=== PATIENT | female | born 1955 | race Caucasian/White ===

== ENCOUNTER 2017-10-01 10:41 | Emergency (ER) | payer BC ==
[~2017-10-01] VITALS: Ht 154.9 cm; Wt 89.8 kg
[~2017-10-01 10:41] MED LIST: ACEBUTCAFT PO; AMLO5 PO; AMOX500 PO; ASCO500 PO; ASPI325 PO; ASPI325EC PO; ASPI81CH PO; ASPIRIN PO; ATOR20 PO; Amitriptyline H50 MG PO; BENZ100A PO; CIPR500 PO; CLOP75 PO; CODBUTACEC PO; CODGUAEL PO; CYCL10 PO; DIAZ5 PO; DOXY100 PO; ETOD400 PO; FERR325 PO; GABA300 PO; GLUC500 PO; HYDACE5 PO; HYDGUAL120 PO; ISODICACE PO; ISOMON20 PO; LEVFLO500 PO; MELO7.5; METO100ER PO; NITR.4SL SL; NITR.6SL SL; Norco 5-325 Ta1 EACH PO; ONDA4 PO; OXYACE5T PO; OXYB5 PO; OXYC10TA19 PO; OXYC5; OXYC5 PO; Omeprazole20 M1 PO; PARO20; PHENA200 PO; PRAV20 PO; PRED20 PO; PROP120ER PO; PYRI100 PO; RANI150 PO; RANO500T PO; SUMA25 PO; TOPI50; TOPI50 PO; TRAM50 PO; VENL75ER; VICODIN 5-3001 EACH PO
[2017-10-01] MEDS ORDERED: Ciloxan5 ML RIGHTEYE (12:03)
[2018-01-01] MEDS ORDERED: [UNRECOGNIZED DRUG - CODE] PO (18:16)
== END 2017-10-01 12:12 | disposition home or self-care (01) ==
LOC: ER 10:41
DX: S05.01XA Injury of conjunctiva and corneal abrasion without foreign body, right eye, initial encounter (principal); Z88.8 Allergy status to other drugs, medicaments and biological substances; Z88.5 Allergy status to narcotic agent; Z79.899 Other long term (current) drug therapy; Z79.82 Long term (current) use of aspirin; Z79.891 Long term (current) use of opiate analgesic; I10 Essential (primary) hypertension; X58.XXXA Exposure to other specified factors, initial encounter
CPT/HCPCS: 99282; 99283

== ENCOUNTER 2018-04-12 12:17 | Emergency (ER) | payer BC ==
[~2018-04-12 12:17] MED LIST changes: +Ciloxan5 ML RIGHTEYE; +[UNRECOGNIZED DRUG - CODE] PO
== END 2018-04-12 12:25 | disposition left against medical advice (07) ==
LOC: ER 12:17
DX: Z53.21 Procedure and treatment not carried out due to patient leaving prior to being seen by health care provider (principal)

== ENCOUNTER 2018-08-27 14:31 | Emergency (ER) | payer BC ==
[~2018-08-27] VITALS: Ht 154.9 cm; Wt 97.1 kg
[2018-08-27 15:07] LABS: BASOPHILS ABSOLUTE AUTO 0.04 K/mm3 (0.00-0.23); BASOPHILS PERCENT AUTO 1 % (0-2); EOSINOPHILS PERCENT AUTO 2 % (0-6); Hematocrit 41.8 % (33.0-51.0); Hemoglobin 14.2 g/dL (11.5-16.0); IMMATURE GRAN ABSOLUTE AUTO 0.02 K/mm3 (0.00-0.10); IMMATURE GRAN PERCENT AUTO 0 % (0-1); LYMPHOCYTES ABSOLUTE AUTO 2.17 K/mm3 (0.84-5.20); LYMPHOCYTES PERCENT AUTO 32 % (21-46); MONOCYTES ABSOLUTE AUTO 0.54 K/mm3 (0.16-1.47); MONOCYTES PERCENT AUTO 8 % (4-13); Mean Corpuscular HGB 30.2 pg (26.0-34.0); Mean Corpuscular Volume 89 fL (80-100); Mean Platelet Volume 8.6 fL (9.1-12.4); NEUTROPHILS ABSOLUTE AUTO 3.97 K/mm3 (1.96-9.15); NEUTROPHILS PERCENT AUTO 58 % (41-73); Platelet Count 275 K/mm3 (150-400); RDW Coefficient Variation 12.2 % (11.7-14.2); RDW Standard Deviation 39.4 fL (35.1-46.3); White Blood Cell Count 6.84 K/mm3 (4.00-11.30)
[2018-08-27 15:25] LABS: Troponin I <0.015 ng/mL (0.000-0.040)
[2018-08-27 15:41] LABS: Alanine Aminotransfer (ALT/SGP 29 U/L (12-78); Albumin, Blood 4.1 g/dL (3.4-5.0); Albumin/Globulin Ratio 1.1 (0.8-1.8); Alk Phos 85 U/L (50-136); Anion Gap 11 mmol/L (6-16); Aspartate Aminotrans (AST/SGOT 20 U/L (12-37); Bilirubin, Total 0.1 mg/dL (0.1-1.0); Blood Urea Nitrogen 12 mg/dL (8-24); Bun/Creatinine Ratio 11.8 (12.0-20.0); CO2, Blood 23 mmol/L (21-32); Calcium, Blood 8.7 mg/dL (8.5-10.1); Chloride, Blood 103 mmol/L (98-108); Creatinine, Blood 1.02 mg/dL (0.40-1.00); Globulin, Blood 3.9 g/dL (2.2-4.0); Glomerular Filtration Rate 58 (60-); Glucose, Blood 94 mg/dL (70-99); Potassium, Blood 3.5 mmol/L (3.5-5.5); Sodium, Blood 137 mmol/L (136-145)
[2018-08-27] MEDS ORDERED: HYDR1TAB94 PO (16:31)
== END 2018-08-27 16:45 | disposition home or self-care (01) ==
LOC: ER 14:31
PROVIDERS: Physician Assistant
DX: I25.10 Atherosclerotic heart disease of native coronary artery without angina pectoris (principal); E78.5 Hyperlipidemia, unspecified; I10 Essential (primary) hypertension; Z88.5 Allergy status to narcotic agent; Z79.899 Other long term (current) drug therapy
CPT/HCPCS: 36415; 71046; 80053; 84484; 85025; 93005; 93010; 99285-25

== ENCOUNTER 2018-12-04 10:44 | Day surgery (SDC) | payer BC ==
[~2018-12-04] VITALS: Ht 154.9 cm; Wt 93.9 kg
[~2018-12-04 10:44] MED LIST changes: +HYDR1TAB94 PO
--- NOTE | 2018-12-04 11:55 | NUR ---
12/04/18 1155 Stevie Olson 1ST IV ATTEMPT IN [facility] UNSUCCESSFUL, ADARSH 2ND IV ATTEMPT IN L[facility] SUCCESSFUL, BRANDONCCONNIE
== END 2018-12-04 14:21 | disposition home or self-care (01) ==
LOC: ORSCSDS 10:44
PROVIDERS: Podiatrist Foot & Ankle Surgery
PROC: 0QBP0ZZ Excision of Left Metatarsal, Open Approach (ICD-10-PCS; principal; 2018-12-04 12:15)
PROC: 0QBM0ZZ Excision of Left Tarsal, Open Approach (ICD-10-PCS; principal; 2018-12-04 12:15)
DX: M19.072 Primary osteoarthritis, left ankle and foot (principal); I25.10 Atherosclerotic heart disease of native coronary artery without angina pectoris; I10 Essential (primary) hypertension; Z79.899 Other long term (current) drug therapy; Z79.82 Long term (current) use of aspirin; E66.01 Morbid (severe) obesity due to excess calories; Z68.38 Body mass index [BMI] 38.0-38.9, adult
CPT/HCPCS: J0690; J1100; J2250; J2405; J2704; J3010; J7120

== ENCOUNTER → 2019-01-18 | Outpatient (CLI) | payer BC | END | disposition home or self-care (01) | LOC: LAB SHORT 13:49 → LAB 13:49 | DX: N39.0 Urinary tract infection, site not specified (principal) | CPT/HCPCS: 87077; 87086; 87186 ==

== ENCOUNTER 2019-07-19 07:40 | Day surgery (SDC) | payer BC ==
[~2019-07-19] VITALS: Ht 154.9 cm; Wt 92.1 kg
[~2019-07-19 07:40] MED LIST changes: +Inderal60 MG PO; +OMEPRAZOLE20 MG PO; -Omeprazole20 M1 PO; -PROP120ER PO
== END 2019-07-19 09:50 | disposition home or self-care (01) ==
LOC: ORSCSDS 07:40
PROVIDERS: Internal Medicine Gastroenterology
PROC: 0DBM8ZX Excision of Descending Colon, Via Natural or Artificial Opening Endoscopic, Diagnostic (ICD-10-PCS; principal; 2019-07-19 09:00)
PROC: 0DBL8ZX Excision of Transverse Colon, Via Natural or Artificial Opening Endoscopic, Diagnostic (ICD-10-PCS; principal; 2019-07-19 09:00)
DX: Z12.11 Encounter for screening for malignant neoplasm of colon (principal); D12.3 Benign neoplasm of transverse colon; D12.4 Benign neoplasm of descending colon; K57.30 Diverticulosis of large intestine without perforation or abscess without bleeding; I25.10 Atherosclerotic heart disease of native coronary artery without angina pectoris; I10 Essential (primary) hypertension; Z79.899 Other long term (current) drug therapy
CPT/HCPCS: 88305; J0330; J0461; J2405; J2704; J7120

== ENCOUNTER 2019-08-11 04:16 | Observation (INO) | payer BC ==
[~2019-08-11] VITALS: Ht 154.9 cm; Wt 92.3 kg
[2019-08-11 04:59] LABS: BASOPHILS ABSOLUTE AUTO 0.05 K/mm3 (0.00-0.23); BASOPHILS PERCENT AUTO 0 % (0-2); EOSINOPHILS ABSOLUTE AUTO 0.08 K/mm3 (0.00-0.68); EOSINOPHILS PERCENT AUTO 0 % (0-6); Hematocrit 43.8 % (33.0-51.0); Hemoglobin 15.3 g/dL (11.5-16.0); IMMATURE GRAN ABSOLUTE AUTO 0.35 K/mm3 (0.00-0.10); IMMATURE GRAN PERCENT AUTO 2 % (0-1); LYMPHOCYTES ABSOLUTE AUTO 2.24 K/mm3 (0.84-5.20); LYMPHOCYTES PERCENT AUTO 12 % (21-46); MONOCYTES ABSOLUTE AUTO 0.89 K/mm3 (0.16-1.47); MONOCYTES PERCENT AUTO 5 % (4-13); Mean Corpuscular HGB 29.9 pg (26.0-34.0); Mean Corpuscular HGB Conc 34.9 g/dL (31.5-36.5); Mean Corpuscular Volume 86 fL (80-100); Mean Platelet Volume 8.3 fL (9.1-12.4); NEUTROPHILS ABSOLUTE AUTO 15.03 K/mm3 (1.96-9.15); NEUTROPHILS PERCENT AUTO 81 % (41-73); Platelet Count 358 K/mm3 (150-400); RDW Coefficient Variation 11.5 % (11.7-14.2); RDW Standard Deviation 36.4 fL (35.1-46.3); Red Blood Cell Count 5.11 M/mm3 (3.80-5.20); White Blood Cell Count 18.64 K/mm3 (4.00-11.30)
[2019-08-11 05:17] LABS: Alanine Aminotransfer (ALT/SGP 45 U/L (12-78); Albumin/Globulin Ratio 1.2 (0.8-1.8); Alk Phos 70 U/L (50-136); Anion Gap 17 mmol/L (6-16); Aspartate Aminotrans (AST/SGOT 22 U/L (12-37); Bilirubin, Total 0.2 mg/dL (0.1-1.0); Blood Urea Nitrogen 23 mg/dL (8-24); Bun/Creatinine Ratio 23.1 (12.0-20.0); CO2, Blood 18 mmol/L (21-32); Calcium, Blood 8.9 mg/dL (8.5-10.1); Chloride, Blood 103 mmol/L (98-108); Globulin, Blood 3.4 g/dL (2.2-4.0); Glomerular Filtration Rate 60 (60-); Glucose, Blood 145 mg/dL (70-99); Potassium, Blood 3.3 mmol/L (3.5-5.5); Sodium, Blood 138 mmol/L (136-145); Total Protein, Blood 7.4 g/dL (6.4-8.2); Troponin I <0.015 ng/mL (0.000-0.040)
[2019-08-11] MEDS ORDERED: HYDR1TAB94 PO (05:56)
[2019-08-11] MEDS ORDERED: Dyazide 37.5-21 EACH PO (05:59)
[2019-08-11 06:23] LABS: Magnesium, Blood 2.4 mg/dL (1.6-2.4); Thyroid Stimulating Hormone 2.04 uIU/mL (0.360-4.800)
[2019-08-11] MEDS ORDERED: Isosorbide Mono30 MG PO (07:51)
--- NOTE | 2019-08-11 09:30 | NUR ---
0730-RECEIVED THIS PT FROM ER WITH A DIAGNOSIS OF AFIB WITH RVR. PT STATED SHE FELT MUCH BETTER AFTER BEING CARDIOVERTED IN THE ER. 08-PT SEEN BY DR. HERNÁNDEZ. UPDATED HIM OF PT'S STATUS. POSSIBLE DISCHARGE TODAY AFTER ECHO IS DONE. CURRENTLY PT IS ON SINUS RHYTHM WITH OCCASIONAL PACs.
[2019-08-11] MEDS ORDERED: XARELTO20 MG PO (15:26)
--- NOTE | 2019-08-11 16:46 | NUR ---
1610-DISCHARGE INSTRUCTIONS GIVEN TO PATIENT. 1630-PT WENT HOME AT THIS TIME.
== END 2019-08-11 16:15 | disposition home or self-care (01) ==
LOC: ER 04:16 → PCU 04:17 → ICUW 07:37
PROVIDERS: Emergency Medicine; ADMIT Family Medicine
DX: I48.0 Paroxysmal atrial fibrillation (principal); D72.829 Elevated white blood cell count, unspecified; I25.10 Atherosclerotic heart disease of native coronary artery without angina pectoris; I10 Essential (primary) hypertension; K21.9 Gastro-esophageal reflux disease without esophagitis; D69.6 Thrombocytopenia, unspecified; J01.90 Acute sinusitis, unspecified; E78.5 Hyperlipidemia, unspecified; E87.6 Hypokalemia; Z95.5 Presence of coronary angioplasty implant and graft; Z90.710 Acquired absence of both cervix and uterus; Z79.01 Long term (current) use of anticoagulants; Z79.02 Long term (current) use of antithrombotics/antiplatelets; Z79.899 Other long term (current) drug therapy; Z88.5 Allergy status to narcotic agent; Z88.6 Allergy status to analgesic agent; Z88.8 Allergy status to other drugs, medicaments and biological substances
CPT/HCPCS: 36415; 71045; 80053; 83735; 84443; 84484; 85025; 92960; 93005; 93010; 93306; 96361; 96374-59; 99285-25; G0378; G0480; J2704; J3480; J7030

== ENCOUNTER 2021-01-26 22:00 | Emergency (ER) | payer MEDICARE ==
[~2021-01-26] VITALS: Ht 154.9 cm; Wt 83.9 kg
[~2021-01-26 22:00] MED LIST changes: +Dyazide 37.5-21 EACH PO; +Isosorbide Mono30 MG PO; +XARELTO20 MG PO
[2021-01-26 22:37] LABS: Albumin/Globulin Ratio Unable to Calculate (0.8-1.8); Anion Gap Unable to Calculate mmol/L (6-16); Bun/Creatinine Ratio Unable to Calculate (12.0-20.0); Globulin, Blood Unable to Calculate g/dL (2.2-4.0); Glomerular Filtration Rate Unable to Calculate (60-)
[2021-01-26 22:45] LABS: BASOPHILS ABSOLUTE AUTO 0.03 K/mm3 (0.00-0.23); BASOPHILS PERCENT AUTO 1 % (0-2); EOSINOPHILS ABSOLUTE AUTO 0.09 K/mm3 (0.00-0.68); EOSINOPHILS PERCENT AUTO 1 % (0-6); Hematocrit 40.7 % (33.0-51.0); Hemoglobin 13.6 g/dL (11.5-16.0); IMMATURE GRAN ABSOLUTE AUTO 0.02 K/mm3 (0.00-0.10); IMMATURE GRAN PERCENT AUTO 0 % (0-1); LYMPHOCYTES PERCENT AUTO 36 % (21-46); MONOCYTES PERCENT AUTO 8 % (4-13); Mean Corpuscular HGB 30.5 pg (26.0-34.0); Mean Corpuscular HGB Conc 33.4 g/dL (31.5-36.5); Mean Corpuscular Volume 91 fL (80-100); Mean Platelet Volume 8.9 fL (9.1-12.4); NEUTROPHILS ABSOLUTE AUTO 3.38 K/mm3 (1.96-9.15); NEUTROPHILS PERCENT AUTO 54 % (41-73); Platelet Count 230 K/mm3 (150-400); RDW Coefficient Variation 12.2 % (11.7-14.2); RDW Standard Deviation 40.4 fL (35.1-46.3); Red Blood Cell Count 4.46 M/mm3 (3.80-5.20); White Blood Cell Count 6.32 K/mm3 (4.00-11.30)
[2021-01-26 22:58] LABS: Alanine Aminotransfer (ALT/SGP 32 U/L (12-78); Albumin, Blood 3.9 g/dL (3.4-5.0); Albumin/Globulin Ratio 1.1 (0.8-1.8); Alk Phos 81 U/L (50-136); Anion Gap 5 mmol/L (6-16); Aspartate Aminotrans (AST/SGOT 19 U/L (12-37); Bilirubin, Total 0.2 mg/dL (0.1-1.0); Blood Urea Nitrogen 14 mg/dL (8-24); Bun/Creatinine Ratio 13.1 (12.0-20.0); CO2, Blood 27 mmol/L (21-32); Calcium, Blood 8.9 mg/dL (8.5-10.1); Chloride, Blood 106 mmol/L (98-108); Creatinine, Blood 1.07 mg/dL (0.40-1.00); Globulin, Blood 3.5 g/dL (2.2-4.0); Glomerular Filtration Rate 55 (60-); Glucose, Blood 110 mg/dL (70-99); Potassium, Blood 3.4 mmol/L (3.5-5.5); Sodium, Blood 138 mmol/L (136-145); Total Protein, Blood 7.4 g/dL (6.4-8.2); Troponin I <0.015 ng/mL (0.000-0.040)
== END 2021-01-27 02:16 | disposition home or self-care (01) ==
LOC: ER 22:00
PROVIDERS: Emergency Medicine
DX: R07.9 Chest pain, unspecified (principal); Z79.01 Long term (current) use of anticoagulants; Z79.899 Other long term (current) drug therapy
CPT/HCPCS: 36415; 71046; 80053; 84484; 85025; 93005; 93010; 99285-25

== ENCOUNTER 2021-04-07 14:32 | Emergency (ER) | payer MEDICARE ==
[~2021-04-07] VITALS: Ht 154.9 cm; Wt 80.3 kg
[2021-04-07 15:24] LABS: BASOPHILS ABSOLUTE AUTO 0.03 K/mm3 (0.00-0.23); BASOPHILS PERCENT AUTO 0 % (0-2); EOSINOPHILS ABSOLUTE AUTO 0.01 K/mm3 (0.00-0.68); EOSINOPHILS PERCENT AUTO 0 % (0-6); Hematocrit 42.3 % (33.0-51.0); Hemoglobin 14.3 g/dL (11.5-16.0); IMMATURE GRAN ABSOLUTE AUTO 0.05 K/mm3 (0.00-0.10); IMMATURE GRAN PERCENT AUTO 0 % (0-1); LYMPHOCYTES ABSOLUTE AUTO 0.68 K/mm3 (0.84-5.20); LYMPHOCYTES PERCENT AUTO 6 % (21-46); MONOCYTES ABSOLUTE AUTO 0.47 K/mm3 (0.16-1.47); MONOCYTES PERCENT AUTO 4 % (4-13); Mean Corpuscular HGB 29.6 pg (26.0-34.0); Mean Corpuscular HGB Conc 33.8 g/dL (31.5-36.5); Mean Corpuscular Volume 88 fL (80-100); Mean Platelet Volume 8.6 fL (9.1-12.4); NEUTROPHILS ABSOLUTE AUTO 10.37 K/mm3 (1.96-9.15); NEUTROPHILS PERCENT AUTO 89 % (41-73); Platelet Count 172 K/mm3 (150-400); RDW Coefficient Variation 12.5 % (11.7-14.2); RDW Standard Deviation 39.8 fL (35.1-46.3); Red Blood Cell Count 4.83 M/mm3 (3.80-5.20); White Blood Cell Count 11.61 K/mm3 (4.00-11.30)
[2021-04-07 15:42] LABS: Albumin, Blood 3.6 g/dL (3.4-5.0); Bilirubin, Total 0.9 mg/dL (0.1-1.0); Bun/Creatinine Ratio 14.5 (12.0-20.0); Calcium, Blood 9.2 mg/dL (8.5-10.1); Creatinine, Blood 1.1 mg/dL (0.40-1.00); Globulin, Blood 3.7 g/dL (2.2-4.0); Total Protein, Blood 7.3 g/dL (6.4-8.2)
[2021-04-07 16:06] LABS: Source, Urine Catheter
[2021-04-07 16:11] LABS: Appearance, Urine Hazy (Clear); Bilirubin, Urine Neg (Neg); Blood, Urine 4+ (Neg); Color, Urine Yellow (P-Yellow); Glucose Qualitative, Urine Neg (Neg); Ketones, Urine Neg (Neg); Leukocyte Esterase, Urine 3+ (Neg); Nitrite, Urine Pos (Neg); Protein, Urine 3+ (Neg); Urobilinogen, Urine NORM (Normal); pH, Urine 6.5 (5.0-8.0)
[2021-04-07 16:22] LABS: Bacteria Many /hpf
[2021-04-07 16:23] LABS: Squamous Epithelial Cells Few /hpf (Few); White Blood Cells, Urine 50-100 /hpf (0-5)
[2021-04-07] MEDS ORDERED: Nitroglycerin0.4 MG SL (17:11)
[2021-04-07] MEDS ORDERED: XARELTO20 MG PO (17:11)
[2021-04-07] MEDS ORDERED: PROP10 PO (17:12)
[2021-04-07] MEDS ORDERED: HYDROCODONE-AC1 EA10 PO (17:12)
[2021-04-07] MEDS ORDERED: Metoprolol Tart25 MG PO (17:12)
[2021-04-07] MEDS ORDERED: TOPI25 PO (17:12)
[2021-04-07] MEDS ORDERED: ATOR20 PO (17:13)
[2021-04-07] MEDS ORDERED: LOSA50 PO (17:13)
[2021-04-07] MEDS ORDERED: SUMA25 PO (17:13)
[2021-04-07] MEDS ORDERED: CYCL10 PO (17:13)
[2021-04-07] MEDS ORDERED: FURO40 PO (17:13)
[2021-04-07] MEDS ORDERED: SPIR50 PO (17:13)
[2021-04-07] MEDS ORDERED: CEFP200 PO (18:33)
== END 2021-04-07 18:44 | disposition home or self-care (01) ==
LOC: ER 14:32
PROVIDERS: Physician Assistant
DX: N12 Tubulo-interstitial nephritis, not specified as acute or chronic (principal); N20.0 Calculus of kidney; I95.9 Hypotension, unspecified; I10 Essential (primary) hypertension; Z79.899 Other long term (current) drug therapy; Z88.8 Allergy status to other drugs, medicaments and biological substances; Z88.6 Allergy status to analgesic agent; Z88.5 Allergy status to narcotic agent; Z79.01 Long term (current) use of anticoagulants
CPT/HCPCS: 36415; 74176; 80053; 81001; 83605; 85025; 87040; 87077; 87086; 87186; 93005; 93010; 96365; 96375; 99284-25; J0696; J1885; J7030

== ENCOUNTER → 2021-07-13 | Outpatient (CLI) | payer MEDICARE ==
[~2021-07-13] MED LIST changes: +CEFP200 PO; +FURO40 PO; +HYDROCODONE-AC1 EA10 PO; +LOSA50 PO; +Metoprolol Tart25 MG PO; +Nitroglycerin0.4 MG SL; +PROP10 PO; +SPIR50 PO; +TOPI25 PO
== END | disposition home or self-care (01) ==
LOC: LAB SHORT 16:33 → LAB 16:33
DX: M81.0 Age-related osteoporosis without current pathological fracture (principal)
CPT/HCPCS: 82306

== ENCOUNTER → 2021-12-20 | Outpatient (CLI) | payer MEDICARE | END | disposition home or self-care (01) | LOC: LAB 13:16 → LAB SHORT 13:16 | DX: N39.0 Urinary tract infection, site not specified (principal) | CPT/HCPCS: 87077; 87086; 87186 ==

== ENCOUNTER → 2022-07-30 | Outpatient (CLI) | payer MEDICARE ==
[~2022-07-30] MED LIST changes: +TOPI100
[2022-07-30 15:32] LABS: Albumin, Blood 3.8 g/dL (3.4-5.0); Anion Gap 10 mmol/L (6-16); Blood Urea Nitrogen 17 mg/dL (8-24); Bun/Creatinine Ratio 18.9 (12.0-20.0); CO2, Blood 23 mmol/L (21-32); Calcium, Blood 8.6 mg/dL (8.5-10.1); Chloride, Blood 105 mmol/L (98-108); Glomerular Filtration Rate 70 (60-); Glucose, Blood 94 mg/dL (70-99); Phosphorus, Blood 3.3 mg/dL (2.5-4.9); Potassium, Blood 3.2 mmol/L (3.5-5.5); Sodium, Blood 138 mmol/L (136-145)
== END ==
LOC: LAB 15:20 → LAB SHORT 15:20
PROVIDERS: Family Medicine
DX: E86.0 Dehydration (principal)
CPT/HCPCS: 80069

== ENCOUNTER 2022-08-23 11:50 | Inpatient (IN) | payer MEDICARE ==
[~2022-08-23] VITALS: Ht 154.9 cm; Wt 80.1 kg
[~2022-08-23 11:50] MED LIST changes: -TOPI100; +TOPI100 PO
[2022-08-23 12:52] LABS: BASOPHILS ABSOLUTE AUTO 0.02 K/mm3 (0.00-0.23); BASOPHILS PERCENT AUTO 0 % (0-2); EOSINOPHILS PERCENT AUTO 2 % (0-6); Hematocrit 40.1 % (33.0-51.0); Hemoglobin 13.8 g/dL (11.5-16.0); IMMATURE GRAN ABSOLUTE AUTO 0.01 K/mm3 (0.00-0.10); IMMATURE GRAN PERCENT AUTO 0 % (0-1); LYMPHOCYTES ABSOLUTE AUTO 1.62 K/mm3 (0.84-5.20); LYMPHOCYTES PERCENT AUTO 26 % (21-46); MONOCYTES ABSOLUTE AUTO 0.47 K/mm3 (0.16-1.47); MONOCYTES PERCENT AUTO 8 % (4-13); Mean Corpuscular HGB 31.3 pg (26.0-34.0); Mean Corpuscular HGB Conc 34.4 g/dL (31.5-36.5); Mean Corpuscular Volume 91 fL (80-100); Mean Platelet Volume 8.3 fL (9.1-12.4); NEUTROPHILS ABSOLUTE AUTO 4.03 K/mm3 (1.96-9.15); NEUTROPHILS PERCENT AUTO 65 % (41-73); Platelet Count 215 K/mm3 (150-400); RDW Coefficient Variation 13.4 % (11.7-14.2); RDW Standard Deviation 44.7 fL (35.1-46.3); Red Blood Cell Count 4.41 M/mm3 (3.80-5.20); White Blood Cell Count 6.25 K/mm3 (4.00-11.30)
[2022-08-23 13:12] LABS: Albumin, Blood 3.9 g/dL (3.4-5.0); Albumin/Globulin Ratio 1.1 (0.8-1.8); Bilirubin, Total 0.2 mg/dL (0.1-1.0); Bun/Creatinine Ratio 25.6 (12.0-20.0); Calcium, Blood 9.9 mg/dL (8.5-10.1); Creatinine, Blood 0.78 mg/dL (0.40-1.00); Globulin, Blood 3.6 g/dL (2.2-4.0); Total Protein, Blood 7.5 g/dL (6.4-8.2)
[2022-08-23] MEDS ORDERED: XARELTO20 MG PO (18:45)
[2022-08-23 19:24] LABS: International Normalized Ratio 1.04; Prothrombin Time Results 10.9 Sec (9.7-11.5)
[2022-08-23 19:58] LABS: Anti-Xa UFH, PHA Monitoring 1.18 IU/mL
[2022-08-23] MEDS ORDERED: PROP10 PO (20:46)
[2022-08-24 03:27] LABS: BASOPHILS ABSOLUTE AUTO 0.02 K/mm3 (0.00-0.23); BASOPHILS PERCENT AUTO 0 % (0-2); EOSINOPHILS ABSOLUTE AUTO 0.12 K/mm3 (0.00-0.68); EOSINOPHILS PERCENT AUTO 2 % (0-6); Hematocrit 38.3 % (33.0-51.0); Hemoglobin 12.8 g/dL (11.5-16.0); IMMATURE GRAN ABSOLUTE AUTO 0.01 K/mm3 (0.00-0.10); IMMATURE GRAN PERCENT AUTO 0 % (0-1); LYMPHOCYTES ABSOLUTE AUTO 2.22 K/mm3 (0.84-5.20); LYMPHOCYTES PERCENT AUTO 38 % (21-46); MONOCYTES ABSOLUTE AUTO 0.37 K/mm3 (0.16-1.47); MONOCYTES PERCENT AUTO 6 % (4-13); Mean Corpuscular HGB Conc 33.4 g/dL (31.5-36.5); Mean Corpuscular Volume 93 fL (80-100); Mean Platelet Volume 8.2 fL (9.1-12.4); NEUTROPHILS ABSOLUTE AUTO 3.14 K/mm3 (1.96-9.15); NEUTROPHILS PERCENT AUTO 53 % (41-73); Platelet Count 198 K/mm3 (150-400); RDW Coefficient Variation 13.7 % (11.7-14.2); RDW Standard Deviation 45.4 fL (35.1-46.3); Red Blood Cell Count 4.13 M/mm3 (3.80-5.20); White Blood Cell Count 5.88 K/mm3 (4.00-11.30)
[2022-08-24 04:18] LABS: Alanine Aminotransfer (ALT/SGP 35 U/L (12-78); Albumin, Blood 3.6 g/dL (3.4-5.0); Albumin/Globulin Ratio 1.1 (0.8-1.8); Alk Phos 64 U/L (50-136); Anion Gap 7 mmol/L (6-16); Aspartate Aminotrans (AST/SGOT 18 U/L (12-37); Bilirubin, Total 0.3 mg/dL (0.1-1.0); Blood Urea Nitrogen 16 mg/dL (8-24); Bun/Creatinine Ratio 22.4 (12.0-20.0); CHOL/HDL RATIO 3.1; CO2, Blood 22 mmol/L (21-32); Calcium, Blood 8.7 mg/dL (8.5-10.1); Chloride, Blood 109 mmol/L (98-108); Cholesterol 187 mg/dL (50-200); Creatinine, Blood 0.72 mg/dL (0.40-1.00); Globulin, Blood 3.4 g/dL (2.2-4.0); Glomerular Filtration Rate 92 (60-); Glucose, Blood 98 mg/dL (70-99); HDL Cholesterol 61 mg/dL (>39); LDL/HDL RATIO 0.9; Low Density Lipoprotein Chol 56 mg/dL (0-110); Magnesium, Blood 2.4 mg/dL (1.6-2.4); Potassium, Blood 3.5 mmol/L (3.5-5.5); Sodium, Blood 138 mmol/L (136-145); Triglycerides 348 mg/dL (30-160); Very Low Density Lipoprot Chol 69 mg/dL (6-32)
--- NOTE | 2022-08-24 07:15 | NUR ---
BUNCHER OPERATOR SUMMARY PT WAS ADMITTED FROM ER FOR UNSTABLE ANGINA. SHE IS ALERT AND ORIENTED X4, INDEPENDENT. PT FOLLOWS DIRECTIONS. SHE REPORTS INTERMITTENT 4/10 SQUEEZING CHEST PAIN THAT WAS RESOLVED SLIGHTLY WITH NITRO AT HOME BUT KEEPS RETURNING. SHE WAS GIVEN TYLENOL X1 FOR THE HEADACHE FROM HER NITRO. PT HAS SOME SCATTERED BRUISING FROM HX OF XARELTO. SHE HAS BEEN SINUS IN THE 70S ON TELE AND SATTING HIGH 90S ON RA. SHE HAS HAD ONLY CLEAR LIQUIDS SINCE MIDNIGHT AND WILL BE NPO AT 0800 FOR ANGIO AT [address]ING SEEN BY DR[address] FISCHER.
--- NOTE | 2022-08-24 08:53 | NUR ---
AM NOTE: PATIENT ALERT AND ORIENTED X4. PERRLA. BILATERAL EMT BASIC STRENGTH AND EXTREMITY MOVEMENTS. STATES SHE FEELS SOME TINGLES IN HER RIGHT HAND THAT IS NOT NORMALLY THERE. STRONG PULSES. UP SBA DUE TO HEPARIN GTT. ON ROOM AIR, LUNGS SOUNDING CLEAR AND DIM IN BASES. DENIES SOB/COUGH. TELE SHOWING NORMAL SINUS RHYTHM WITH HR 70-80'S. BP STABLE. HEPARIN GTT INFUSING PER EMAR. NO SIGNS OF EDEMA. STATES SHE HAS HAD 4-6/10 CHEST PRESSURE ON AND OFF THE LAST DAY. DESCRIBES PRESSURE A SQUEEZING FEELING. AT TIMES IT CAN RADIATE TO NECK. NO RADIATING PAIN AT THIS TIME. DENIES NEED FOR NITRO, DUE TO IT CAUSING PATIENT HEADACHE. CURRENT HEADACHE 4/10 PAIN, TYLENOL GIVEN. PLAN FOR ECHO THIS AM AND ANGIO. STRESS TEST CANCELLED PER MUSICAL INSTRUMENT MECHANIC REPORT. NPO AT THIS TIME. MORN MEDS GIVEN WITH LASIX BEING HELD PER ORDERS. SCATTERED BRUISING THROUGHOUT, SEE DOCUMENTED PICTURES IN CHART. DR. GIRON BY THIS AM, NEW ORDERS FOR KCL PO SOLUTION 40 MEQ X1 NOW, WELL ORDERS FOR 08/25 AM; MAG, RENAL PANEL AND CBC LABS WELL CT OF HEAD WITH CONTRAST DUE TO CHRONIC MIGRAINES. ORDERS IN PLACE. HEPARIN AND NS INFUSING PER EMAR. PATIENT SPOUSE AT BEDSIDE AND UPDATED ON PLAN OF CARE. WILL CONTINUE TO MONITOR.
--- NOTE | 2022-08-24 14:22 | NUR ---
PATIENT TAKEN TO EMERGENCY VETERINARY TECHNICIAN AT THIS TIME
--- NOTE | 2022-08-24 16:10 | NUR ---
PATIENT RETURNS TO PCU AT 1600. POST VITALS IN PROGRESS. RIGHT TR BAND SOFT/NONTENDER. INITIAL POKE DISTAL TO TR BAND WNL. NO SIGNS OF BLEEDING. ARM BOARD IN PLACE. RADIAL PRECAUTIONS REVIEWED. PATIENT DENIES CHEST PAIN/PRESSURE WELL HEADACHE. NS INFUSING AT 125 ML/HR TO STOP AT 10PM TONIGHT. DIET ORDERS IN PLACE. FAMILY AT BEDSIDE. DR. FISCHER IN TO UPDATE PATIENT AND FAMILY. WILL CONTINUE TO MONITOR.
--- NOTE | 2022-08-24 18:26 | NUR ---
SHIFT SUMMARY: NO ACUTE CHANGES POST ANGIOGRAM. NS INFUSING AT 125ML/HR TO STOP AT 2200. REMAINS ALERT AND ORIENTED X4. TELE CONTINUES TO SHOW SR WITH HR 60'S. RIGHT RADIAL SITE WNL. TR BAND DEFLATION STARTED AT 1745. ARM BOARD IN PLACE. DENIES CHEST PAIN/PRESSURE. DENIES HEADACHE. POST OP VITALS IN PROGRESS. AT BEDSIDE. EATING WNL. SPOKE WITH DR. FISCHER REGARDING XERALTO ORDER AND XERALTO TO START 1/15 AM, SEE EMAR. PATIENT EDUCATED ON POST RADIAL AND ANGIO PRECAUTIONS. PATIENT AND FAMILY ABLE TO REPEAT EDUCATION BACK TO THIS RN. WILL CONTINUE TO MONITOR AND REPORT OFF TO ONCOMING RN.
--- NOTE | 2022-08-24 19:22 | NUR ---
MODERATE SIZE OOZE AT RIGHT RADIAL SITE UNDER TR BAND. 2ML REINFLATED IN BAND AT 1913. NOC NURSE IN TO ASSESS WITH THIS RN. NO HEMATOMA FORMING. SKIN AROUND REMAINS SOFT/NONTENDER.
--- NOTE | 2022-08-25 01:00 | NUR ---
PT'S TR BAND REINFLATED TO 6 ML AT SHIFT CHANGE DUE TO NEW OOZING. CONSULTED WITH DR FISCHER REGARDING SITE BLEEDING. HE STATES IS OKAY TO EXTEND TR BAND RECOVERY TIME DUE TO PT RECENTLY TAKING XARELTO. 2044 - TR BAND DEFLATED TO 4 ML SITE NOTED NO BLEEDING. 2218 - TR BAND DEFLATED TO 2 ML - NO BLEEDING OR HEMATOMA NOTED. SMALL DEVELOPING BRUISE NEAR MISSED INITIAL ACCESS SITE. 2229 - TR BAND FULLY DEFLATED - NO BLEEDING, PAIN OR HEMATOMA. SMALL DEVELOPING BRUISE WITHOUT PAIN. 0100 - TR BAND REMOVED AND SITE CLEANED WITH TEGADERM PLACED - NO NOTED OOZING OR HEMATOMA BUT SOME SLIGHT BRUISING WITHOUT PAIN.
[2022-08-25 04:36] LABS: BASOPHILS ABSOLUTE AUTO 0.02 K/mm3 (0.00-0.23); BASOPHILS PERCENT AUTO 0 % (0-2); EOSINOPHILS ABSOLUTE AUTO 0.12 K/mm3 (0.00-0.68); EOSINOPHILS PERCENT AUTO 2 % (0-6); Hematocrit 37.3 % (33.0-51.0); Hemoglobin 12.3 g/dL (11.5-16.0); IMMATURE GRAN ABSOLUTE AUTO 0.01 K/mm3 (0.00-0.10); IMMATURE GRAN PERCENT AUTO 0 % (0-1); LYMPHOCYTES PERCENT AUTO 31 % (21-46); MONOCYTES ABSOLUTE AUTO 0.49 K/mm3 (0.16-1.47); MONOCYTES PERCENT AUTO 9 % (4-13); Mean Corpuscular HGB 30.8 pg (26.0-34.0); Mean Corpuscular Volume 93 fL (80-100); Mean Platelet Volume 8.3 fL (9.1-12.4); NEUTROPHILS PERCENT AUTO 58 % (41-73); Platelet Count 187 K/mm3 (150-400); RDW Coefficient Variation 13.5 % (11.7-14.2); RDW Standard Deviation 46.2 fL (35.1-46.3); White Blood Cell Count 5.74 K/mm3 (4.00-11.30)
[2022-08-25 05:03] LABS: Albumin, Blood 3.3 g/dL (3.4-5.0); Anion Gap 4 mmol/L (6-16); Blood Urea Nitrogen 15 mg/dL (8-24); Bun/Creatinine Ratio 19.9 (12.0-20.0); CO2, Blood 23 mmol/L (21-32); Calcium, Blood 8.2 mg/dL (8.5-10.1); Chloride, Blood 113 mmol/L (98-108); Creatinine, Blood 0.75 mg/dL (0.40-1.00); Glomerular Filtration Rate 87 (60-); Glucose, Blood 94 mg/dL (70-99); Magnesium, Blood 2.3 mg/dL (1.6-2.4); Phosphorus, Blood 2.6 mg/dL (2.5-4.9); Sodium, Blood 140 mmol/L (136-145)
--- NOTE | 2022-08-25 06:11 | NUR ---
LOBBY PORTER SUMMARY ASSUMED CARE OF THE PATIENT AT 1900. SHE IS ALERT AND ORIENTED X4, SBA DUE TO LINES AND TUBING. PT WITH RIGHT RADIAL ACCESS SITE, RECOVERED. TR BAND REMOVED AT 0100 AND SITE CHECKED THROUGHOUT THE SHIFT. SMALL AREA OF BRUISING NOTED TO PREVIOUS FAILED ACCESS SITE BUT NO HEMATOMA, OOZING, OR PAIN TO THE ACCESS SITE. NS INFUSION STOPPED. PT REQUESTED TYLENOL ONCE FOR A HEADACHE WITH IMPROVEMENT. PT REPORTS NO CHEST PAIN SINCE HAVING THE ANGIO.
[2022-08-25] MEDS ORDERED: RANO500T PO (13:45)
[2022-08-25] MEDS ORDERED: METO50ER PO (13:45)
[2022-08-25] MEDS ORDERED: ATOR40TA PO (13:45)
== END 2022-08-25 14:05 | disposition home or self-care (01) | DRG 287 ==
LOC: ER 11:50 → MEDS 17:37 → PCU 20:29
PROVIDERS: Physician Assistant; ADMIT Family Medicine
PROC: 4A023N7 Measurement of Cardiac Sampling and Pressure, Left Heart, Percutaneous Approach (ICD-10-PCS; principal; 2022-08-24)
PROC: B211YZZ Fluoroscopy of Multiple Coronary Arteries using Other Contrast (ICD-10-PCS; 2022-08-24)
PROC: 4A033BC Measurement of Arterial Pressure, Coronary, Percutaneous Approach (ICD-10-PCS; 2022-08-24)
PROC: B240ZZ3 Ultrasonography of Single Coronary Artery, Intravascular (ICD-10-PCS; 2022-08-24)
DX: I25.110 Atherosclerotic heart disease of native coronary artery with unstable angina pectoris (principal); T82.855A Stenosis of coronary artery stent, initial encounter; I10 Essential (primary) hypertension; E78.5 Hyperlipidemia, unspecified; I48.0 Paroxysmal atrial fibrillation; Z88.8 Allergy status to other drugs, medicaments and biological substances; Z88.5 Allergy status to narcotic agent; Z79.899 Other long term (current) drug therapy; Z79.01 Long term (current) use of anticoagulants; I25.2 Old myocardial infarction; Z98.890 Other specified postprocedural states; Z95.5 Presence of coronary angioplasty implant and graft; Z90.710 Acquired absence of both cervix and uterus; Z98.1 Arthrodesis status; Z87.442 Personal history of urinary calculi; Z79.02 Long term (current) use of antithrombotics/antiplatelets; Z79.891 Long term (current) use of opiate analgesic
CPT/HCPCS: 36415; 70496; 70498; 71045; 76937; 80053; 80061; 80069; 82947; 83735; 83880; 84484; 85025; 85347; 85520; 85610; 85730; 93005; 93010; 93306; 93458; 93571; 99152; 99153; 99285-25; A9270; C1769; C1887; C1894; J0153; J1644; J2250; J3010; J7030; J7050; Q9967

== ENCOUNTER 2023-06-17 08:59 | Day surgery (SDC) | payer MEDICARE ==
[~2023-06-17] VITALS: Ht 154.9 cm; Wt 79.4 kg
[~2023-06-17 08:59] MED LIST changes: +ATOR40TA PO; +METO50ER PO
[2023-06-17] MEDS ORDERED: BUTALB-ACETAMI1 EAC7 PO (09:43)
[2023-06-17] MEDS ORDERED: NITRO-DUR1 EAC1 TOP (09:45)
[2023-06-17] MEDS ORDERED: NITR.4SL (09:45)
[2023-06-17] MEDS ORDERED: AJOVY SYRI225 MG/1.5 SQ (09:46)
[2023-06-17] MEDS ORDERED: PROP10 PO (09:47)
[2023-06-17] MEDS ORDERED: OMEP20ER PO (09:51)
[2023-06-17] MEDS ORDERED: K-Dur20 MEQ PO (09:51)
--- NOTE | 2023-06-17 09:53 | NUR ---
06/17/23 0953 Tricia Morrow AT 0944 P[place]ARMANDOET AT [phone]
[2023-06-17 10:44] VITALS: BP 105/65
--- NOTE | 2023-06-17 11:02 | NUR ---
06/17/23 1102 Randall Cabello IV REMOVED INTACT. SITE WNL.
== END 2023-06-17 10:57 | disposition home or self-care (01) ==
LOC: ORSCSDS 08:59
PROVIDERS: Student in an Organized Health Care Education/Training Program
PROC: 08RJ3JZ Replacement of Right Lens with Synthetic Substitute, Percutaneous Approach (ICD-10-PCS; principal; 2023-06-17 10:30)
DX: H25.11 Age-related nuclear cataract, right eye (principal); I48.91 Unspecified atrial fibrillation; I25.10 Atherosclerotic heart disease of native coronary artery without angina pectoris; I10 Essential (primary) hypertension; D64.9 Anemia, unspecified; K21.9 Gastro-esophageal reflux disease without esophagitis; I25.2 Old myocardial infarction; E66.9 Obesity, unspecified; Z68.33 Body mass index [BMI] 33.0-33.9, adult; Z79.01 Long term (current) use of anticoagulants; Z79.899 Other long term (current) drug therapy
CPT/HCPCS: J2250; J3010; J7040; V2632

== ENCOUNTER 2023-07-01 08:59 | Day surgery (SDC) | payer MEDICARE ==
[~2023-07-01] VITALS: Ht 154.9 cm; Wt 78.5 kg
[~2023-07-01 08:59] MED LIST changes: +AJOVY SYRI225 MG/1.5 SQ; +BUTALB-ACETAMI1 EAC7 PO; +K-Dur20 MEQ PO; +NITR.4SL; +NITRO-DUR1 EAC1 TOP; +OMEP20ER PO
--- NOTE | 2023-07-01 09:39 | NUR ---
07/01/23 0939 Tricia Morrow AT 0935 PLEARMANDO[place] AT [phone]
[2023-07-01 10:33] VITALS: BP 119/80
== END 2023-07-01 10:50 | disposition home or self-care (01) ==
LOC: ORSCSDS 08:59
PROVIDERS: Student in an Organized Health Care Education/Training Program
PROC: 08RK3JZ Replacement of Left Lens with Synthetic Substitute, Percutaneous Approach (ICD-10-PCS; principal; 2023-07-01 10:30)
DX: H25.12 Age-related nuclear cataract, left eye (principal); Z96.1 Presence of intraocular lens; I10 Essential (primary) hypertension; I48.91 Unspecified atrial fibrillation; I25.10 Atherosclerotic heart disease of native coronary artery without angina pectoris; K21.9 Gastro-esophageal reflux disease without esophagitis; I25.2 Old myocardial infarction; Z79.01 Long term (current) use of anticoagulants; Z79.899 Other long term (current) drug therapy
CPT/HCPCS: J2250; J3010; J7040; V2632

== ENCOUNTER → 2024-03-01 | Outpatient (CLI) | payer MEDICARE ==
[2024-03-01 13:08] LABS: Source, Urine Clean Catch; Squamous Epithelial Cells Many /hpf (Few)
[2024-03-01 13:09] LABS: Bacteria Many /hpf
== END | disposition home or self-care (01) ==
LOC: LAB SHORT 12:55 → LAB 12:55
PROVIDERS: Internal Medicine
DX: N39.0 Urinary tract infection, site not specified (principal)
CPT/HCPCS: 81015; 87077; 87086; 87186

== ENCOUNTER 2024-07-19 12:04 | Emergency (ER) | payer MEDICARE ==
[~2024-07-19] VITALS: Ht 154.9 cm; Wt 75.8 kg
[2024-07-19 12:13] VITALS: BP 106/70
[2024-07-19 12:40] LABS: BASOPHILS ABSOLUTE AUTO 0.02 K/mm3 (0.00-0.23); BASOPHILS PERCENT AUTO 0 % (0-2); EOSINOPHILS ABSOLUTE AUTO 0.08 K/mm3 (0.00-0.68); EOSINOPHILS PERCENT AUTO 1 % (0-6); Hematocrit 26.1 % (33.0-51.0); Hemoglobin 8.1 g/dL (11.5-16.0); IMMATURE GRAN ABSOLUTE AUTO 0.09 K/mm3 (0.00-0.10); IMMATURE GRAN PERCENT AUTO 1 % (0-1); LYMPHOCYTES ABSOLUTE AUTO 0.68 K/mm3 (0.84-5.20); LYMPHOCYTES PERCENT AUTO 5 % (21-46); MONOCYTES ABSOLUTE AUTO 0.77 K/mm3 (0.16-1.47); MONOCYTES PERCENT AUTO 6 % (4-13); Mean Corpuscular HGB 26.2 pg (26.0-34.0); Mean Corpuscular Volume 85 fL (80-100); Mean Platelet Volume 8.2 fL (9.1-12.4); NEUTROPHILS ABSOLUTE AUTO 11.64 K/mm3 (1.96-9.15); NEUTROPHILS PERCENT AUTO 88 % (41-73); Platelet Count 245 K/mm3 (150-400); RDW Coefficient Variation 13.1 % (11.7-14.2); RDW Standard Deviation 39.9 fL (35.1-46.3); Red Blood Cell Count 3.09 M/mm3 (3.80-5.20); White Blood Cell Count 13.28 K/mm3 (4.00-11.30)
[2024-07-19 13:48] LABS: Albumin, Blood 3.2 g/dL (3.4-5.0); Albumin/Globulin Ratio 0.9 (0.8-1.8); Bilirubin, Total 0.3 mg/dL (0.1-1.0); Bun/Creatinine Ratio 19.5 (12.0-20.0); Calcium, Blood 8.9 mg/dL (8.5-10.1); Creatinine, Blood 1.18 mg/dL (0.40-1.00); Globulin, Blood 3.7 g/dL (2.2-4.0); Potassium, Blood 4.1 mmol/L (3.5-5.5); Total Protein, Blood 6.9 g/dL (6.4-8.2)
[2024-07-19 15:25] LABS: Source, Urine Clean Catch
[2024-07-19 15:48] LABS: Appearance, Urine Hazy (Clear); Bilirubin, Urine Neg (Neg); Blood, Urine 5+ (Neg); Color, Urine Yellow (P-Yellow); Glucose Qualitative, Urine Neg (Neg); Ketones, Urine Neg (Neg); Leukocyte Esterase, Urine 1+ (Neg); Nitrite, Urine Neg (Neg); Protein, Urine 1+ (Neg); Urobilinogen, Urine NORM (Normal)
[2024-07-19 16:08] LABS: Bacteria Rare /hpf; Red Blood Cells, Urine 25-50 /hpf (0-2); Squamous Epithelial Cells Rare /hpf (Few)
[2024-07-19] MEDS ORDERED: AMOCLA875 PO (16:10)
[2024-07-19] MEDS ORDERED: PROM25 PO (16:10)
[2024-07-19] MEDS ORDERED: OxyCODONE HCL 5 MG TAB PO ONE (16:10)
[2024-07-19] MEDS ORDERED: Amoxicillin/Clavulanate K 875 MG Tab PO ONE (16:10)
[2024-07-19] MEDS ORDERED: PERCOCET 10-321 EA10 PO (16:13)
== END 2024-07-19 16:41 | disposition home or self-care (01) ==
LOC: ER 12:04
PROVIDERS: Physician Assistant
DX: K52.9 Noninfective gastroenteritis and colitis, unspecified (principal); D64.9 Anemia, unspecified; I10 Essential (primary) hypertension; I48.91 Unspecified atrial fibrillation; I25.2 Old myocardial infarction; Z88.8 Allergy status to other drugs, medicaments and biological substances; Z88.5 Allergy status to narcotic agent; Z79.01 Long term (current) use of anticoagulants; Z79.899 Other long term (current) drug therapy
CPT/HCPCS: 74177; 80053; 81001; 82272; 83690; 85025; 87077; 87086; 87186; 99284-25; A9270; Q9967

== ENCOUNTER 2024-08-12 13:14 | Inpatient (IN) | payer MEDICARE ==
[~2024-08-12] VITALS: Ht 162.6 cm; Wt 77.2 kg
[~2024-08-12 13:14] MED LIST changes: -BUTONI; -DICL75ER PO
[2024-08-12] MEDS ORDERED: Pantoprazole Sodium 40 MG Injection IV ONE (19:25)
[2024-08-12 20:09] LABS: BASOPHILS ABSOLUTE AUTO 0.01 K/mm3 (0.00-0.23); BASOPHILS PERCENT AUTO 0 % (0-2); EOSINOPHILS ABSOLUTE AUTO 0.07 K/mm3 (0.00-0.68); EOSINOPHILS PERCENT AUTO 3 % (0-6); Hematocrit 21.4 % (33.0-51.0); Hemoglobin 6.4 g/dL (11.5-16.0); IMMATURE GRAN ABSOLUTE AUTO 0.01 K/mm3 (0.00-0.10); IMMATURE GRAN PERCENT AUTO 0 % (0-1); LYMPHOCYTES ABSOLUTE AUTO 0.87 K/mm3 (0.84-5.20); LYMPHOCYTES PERCENT AUTO 34 % (21-46); MONOCYTES PERCENT AUTO 16 % (4-13); Mean Corpuscular HGB 24.1 pg (26.0-34.0); Mean Corpuscular HGB Conc 29.9 g/dL (31.5-36.5); Mean Corpuscular Volume 81 fL (80-100); Mean Platelet Volume 9.1 fL (9.1-12.4); NEUTROPHILS ABSOLUTE AUTO 1.21 K/mm3 (1.96-9.15); NEUTROPHILS PERCENT AUTO 47 % (41-73); Platelet Count 232 K/mm3 (150-400); RDW Coefficient Variation 14.5 % (11.7-14.2); RDW Standard Deviation 42.8 fL (35.1-46.3); Red Blood Cell Count 2.66 M/mm3 (3.80-5.20); White Blood Cell Count 2.57 K/mm3 (4.00-11.30)
[2024-08-12] MEDS ORDERED: Acetamin/Butalbital/Caffeine Tab PO ONE (23:35)
[2024-08-13] VITALS (7 sets, daily range): BP systolic 105–154; BP diastolic 58–89
[2024-08-13] MEDS ORDERED: Misc. Nasal Solution PRN (01:50)
--- NOTE | 2024-08-13 03:27 | NUR ---
MEDICATION IN PHARMACY ON ADMISSION, PATIENT REQUESTING TO TAKE HOME MEDICATION BUTORPHANOL - NASAL SPRAY FOR A MIGRAINE. PATIENT STATES SHE TAKES THIS MEDICATION AT HOME AFTER HER OTHER MEDICATIONS FOR MIGRAINES DO NOT WORK. PATIENT ALSO STATES SHE TOOK MEDICATION IN THE ER FOR A MIGRAINE BUT GOT NO RELIEF. CALL PLACED TO CIPRIANO PINA TO ORDER MEDICATION AND SEND TO PHARMACY FOR VERIFICATION. D/T MEDICATION BEING A NARCOTIC, MEDICATION TO BE SIGNED IN/OUT OF PHARMACY WHEN NEEDED AND TO BE STORED IN PHARMACY. PHARMACIST DENNYS KUMAR RN AND THIS RN IN AGREEANCE TO KEEP MEDICATION IN PHARMACY UNTIL NEEDED.
[2024-08-13 03:36] LABS: Hematocrit 27.9 % (33.0-51.0); Hemoglobin 8.6 g/dL (11.5-16.0)
[2024-08-13] MEDS ORDERED: Pantoprazole Sodium 40 MG Injection IV SCH ×2 (06:00)
[2024-08-13] MEDS ORDERED: DICL75ER PO (06:05)
[2024-08-13] MEDS ORDERED: BUTONI (06:07)
[2024-08-13] MEDS ORDERED: ONDA4 PO (06:08)
--- NOTE | 2024-08-13 06:42 | NUR ---
ADMIT/SHIFT SUMMARY PT ARRIVED TO ROOM PCU 12 FROM THE ER AROUND 0100 VIA GURNEY. PT WAS A SBA TO HOSPITAL BED. PT HAD SECOND UNIT OF PRBC INFUSING. ORIENTED PT TO ROOM/CALL LIGHT. PT IS A&OX4, PLEASANT AND COOPERATIVE WITH CARE. C/O SEVERE NIELSEN, STATES THE FIORICET IN ER HAD LITTLE EFFECT. PT REQUESTING TO TAKE HER HOME MED BUTORPHANOL, SENT TO PHARMACY FOR VERIFICATION. ADMINISTERED NASAL SPRAY, AND SENT BACK TO PHARMACY PER THEIR REQUEST. NIELSEN WAS THEN GONE. PT USES THIS MEDICATION A LAST RESORT FOR HER CHRONIC MIGRAINES. PT ALSO HAS A NEURO STIMULATOR. SBA TO BR. VOIDING IN TOILET. NO BM THIS SHIFT. BED IN LOWEST POSITION, CALL LIGHT WITHIN REACH.
[2024-08-13 07:02] LABS: Hematocrit 28.4 % (33.0-51.0); Hemoglobin 8.8 g/dL (11.5-16.0)
--- NOTE | 2024-08-13 08:30 | NUR ---
am note this rn assumed care at 0700. vital signs stable. tele sinus rhythm 70s. patient is alert and oriented x4. neuro is intact. patient has a neuro stimulator. patient reports headache, and this rn called md myers at 0800 to ask about home meds and for medication for headache, no new orders. patient denies chest pain/pressure or shortness of breath. abd is soft nontender and hypoactive bowel tones. patient has not had a bowel movement this shift. see shift assessment for furher detials this rn message md martinez at 0850 to updated on patient requesting for a "non aspirin and not tylenol", stated he would be by shortly to see the patient and discuss plan. this rn updated patient on this. patient npo. patient has accepting doctor but not a bed at [facility].
--- NOTE | 2024-08-13 10:59 | NUR ---
update patient requesting pain medication for back pain and mirgraine, this rn informed md martinez, no new orders at this time.
[2024-08-13 11:05] LABS: Hematocrit 27.2 % (33.0-51.0); Hemoglobin 8.4 g/dL (11.5-16.0)
[2024-08-13] MEDS ORDERED: HYDROcodone 5-APAP 325 TAB PO PRN (11:20)
--- NOTE | 2024-08-13 12:25 | NUR ---
update md myers in the room approx 1125 to speak with patient. pain meds ordered, and gi consult has been ordered.
--- NOTE | 2024-08-13 17:18 | NUR ---
shift summary this rn gave report to dale at [facility] in [place]. [facility]. patient belongings have been gathered and are in the room. md martinez in to see patient. plan for transport is at 1815. patient is awaiting for transport in room with . no acute changes.
--- NOTE | 2024-08-13 18:15 | NUR ---
left with transport patient left with transport in no distress and with all belongings
[2024-08-13] MEDS ORDERED: Ranolazine 500 MG ER Tablet PO SCH (21:00)
[2024-08-13] MEDS ORDERED: Metoprolol Succinate 50 MG TABCR PO SCH (21:00)
[2024-08-14] MEDS ORDERED: Potassium Chloride 20 MEQ TabCR PO SCH (09:00)
[2024-08-14] MEDS ORDERED: Spironolactone 50 MG Tab PO SCH (09:00)
[2024-08-14] MEDS ORDERED: Furosemide 40 MG Tab PO SCH (09:00)
[2024-08-14] MEDS ORDERED: Atorvastatin 40 MG Tab PO SCH (09:00)
[2024-08-14] MEDS ORDERED: Losartan Potassium 50 MG Tab PO SCH (09:00)
== END 2024-08-13 18:12 | disposition short-term general hospital (02) | DRG 378 ==
LOC: ER 13:14 → PCU 23:55
PROVIDERS: Student in an Organized Health Care Education/Training Program; ADMIT Internal Medicine
DX: K92.2 Gastrointestinal hemorrhage, unspecified (principal); D62 Acute posthemorrhagic anemia; I48.91 Unspecified atrial fibrillation; I10 Essential (primary) hypertension; I25.10 Atherosclerotic heart disease of native coronary artery without angina pectoris; E66.01 Morbid (severe) obesity due to excess calories; G43.909 Migraine, unspecified, not intractable, without status migrainosus; Z95.5 Presence of coronary angioplasty implant and graft; Z88.6 Allergy status to analgesic agent; Z88.5 Allergy status to narcotic agent; Z79.01 Long term (current) use of anticoagulants; Z79.899 Other long term (current) drug therapy; I25.2 Old myocardial infarction; Z88.8 Allergy status to other drugs, medicaments and biological substances; Z68.29 Body mass index [BMI] 29.0-29.9, adult
CPT/HCPCS: 36415; 36430; 85014; 85018; 85025; 85520; 86850; 86900; 86901; 86923; 96374; 99285-25; A9270; J2470; P9016

== ENCOUNTER → 2024-08-12 | Outpatient (CLI) | payer MEDICARE ==
[~2024-08-12] MED LIST changes: +AMOCLA875 PO; +BUTONI; +DICL75ER PO; +PERCOCET 10-321 EA10 PO; +PROM25 PO
[2024-08-12 12:48] LABS: BASOPHILS ABSOLUTE AUTO 0.01 K/mm3 (0.00-0.23); BASOPHILS PERCENT AUTO 0 % (0-2); EOSINOPHILS ABSOLUTE AUTO 0.13 K/mm3 (0.00-0.68); EOSINOPHILS PERCENT AUTO 4 % (0-6); Hematocrit 25.6 % (33.0-51.0); Hemoglobin 7.4 g/dL (11.5-16.0); IMMATURE GRAN ABSOLUTE AUTO 0.01 K/mm3 (0.00-0.10); IMMATURE GRAN PERCENT AUTO 0 % (0-1); LYMPHOCYTES ABSOLUTE AUTO 0.76 K/mm3 (0.84-5.20); LYMPHOCYTES PERCENT AUTO 22 % (21-46); MONOCYTES ABSOLUTE AUTO 0.42 K/mm3 (0.16-1.47); MONOCYTES PERCENT AUTO 12 % (4-13); Mean Corpuscular HGB 23.3 pg (26.0-34.0); Mean Corpuscular HGB Conc 28.9 g/dL (31.5-36.5); Mean Corpuscular Volume 81 fL (80-100); Mean Platelet Volume 8.3 fL (9.1-12.4); NEUTROPHILS ABSOLUTE AUTO 2.18 K/mm3 (1.96-9.15); NEUTROPHILS PERCENT AUTO 62 % (41-73); Platelet Count 237 K/mm3 (150-400); RDW Coefficient Variation 14.6 % (11.7-14.2); Red Blood Cell Count 3.17 M/mm3 (3.80-5.20); White Blood Cell Count 3.51 K/mm3 (4.00-11.30)
[2024-08-12 12:56] LABS: Albumin, Blood 3.2 g/dL (3.4-5.0); Albumin/Globulin Ratio 0.8 (0.8-1.8); Bilirubin, Total 0.2 mg/dL (0.1-1.0); Bun/Creatinine Ratio 17.3 (12.0-20.0); Calcium, Blood 8.4 mg/dL (8.5-10.1); Creatinine, Blood 1.04 mg/dL (0.40-1.00); Magnesium, Blood 1.9 mg/dL (1.6-2.4); Potassium, Blood 3.8 mmol/L (3.5-5.5); Total Protein, Blood 7.2 g/dL (6.4-8.2)
== END ==
LOC: LAB SHORT 12:42 → LAB 12:42
PROVIDERS: Emergency Medicine
DX: Z86.2 Personal history of diseases of the blood and blood-forming organs and certain disorders involving the immune mechanism (principal)
CPT/HCPCS: 80053; 83690; 83735; 85025

== ENCOUNTER 2024-12-15 09:43 | Emergency (ER) | payer MEDICARE ==
[~2024-12-15] VITALS: Ht 154.9 cm; Wt 74.4 kg
[~2024-12-15 09:43] MED LIST changes: +BUTONI; +DICL75ER PO
[2024-12-15] MEDS ORDERED: Nitroglycerin 0.4 MG SUBL SL ONE (10:25)
[2024-12-15 10:37] LABS: BASOPHILS ABSOLUTE AUTO 0.02 K/mm3 (0.00-0.23); BASOPHILS PERCENT AUTO 0 % (0-2); EOSINOPHILS ABSOLUTE AUTO 0.08 K/mm3 (0.00-0.68); EOSINOPHILS PERCENT AUTO 2 % (0-6); Hematocrit 37.5 % (33.0-51.0); Hemoglobin 12.9 g/dL (11.5-16.0); IMMATURE GRAN ABSOLUTE AUTO 0.01 K/mm3 (0.00-0.10); IMMATURE GRAN PERCENT AUTO 0 % (0-1); LYMPHOCYTES ABSOLUTE AUTO 1.18 K/mm3 (0.84-5.20); LYMPHOCYTES PERCENT AUTO 26 % (21-46); MONOCYTES ABSOLUTE AUTO 0.29 K/mm3 (0.16-1.47); MONOCYTES PERCENT AUTO 6 % (4-13); Mean Corpuscular HGB 30.9 pg (26.0-34.0); Mean Corpuscular HGB Conc 34.4 g/dL (31.5-36.5); Mean Corpuscular Volume 90 fL (80-100); Mean Platelet Volume 8.2 fL (9.1-12.4); NEUTROPHILS ABSOLUTE AUTO 2.99 K/mm3 (1.96-9.15); NEUTROPHILS PERCENT AUTO 66 % (41-73); Platelet Count 212 K/mm3 (150-400); RDW Coefficient Variation 13.6 % (11.7-14.2); Red Blood Cell Count 4.17 M/mm3 (3.80-5.20); White Blood Cell Count 4.57 K/mm3 (4.00-11.30)
[2024-12-15 10:59] LABS: Albumin, Blood 3.6 g/dL (3.4-5.0); Albumin/Globulin Ratio 1.1 (0.8-1.8); Bilirubin, Total 0.4 mg/dL (0.1-1.0); Bun/Creatinine Ratio 14.4 (12.0-20.0); Calcium, Blood 9.3 mg/dL (8.5-10.1); Creatinine, Blood 0.97 mg/dL (0.40-1.00); Globulin, Blood 3.3 g/dL (2.2-4.0); Potassium, Blood 3.9 mmol/L (3.5-5.5); Total Protein, Blood 6.9 g/dL (6.4-8.2)
[2024-12-15 12:30] VITALS: BP 143/88
== END 2024-12-15 13:26 | disposition home or self-care (01) ==
LOC: ER 09:43
PROVIDERS: Student in an Organized Health Care Education/Training Program
DX: I20.89 Other forms of angina pectoris (principal); I10 Essential (primary) hypertension; E78.5 Hyperlipidemia, unspecified; K21.9 Gastro-esophageal reflux disease without esophagitis; Z88.8 Allergy status to other drugs, medicaments and biological substances; Z79.02 Long term (current) use of antithrombotics/antiplatelets; Z79.899 Other long term (current) drug therapy; Z88.5 Allergy status to narcotic agent; Z95.5 Presence of coronary angioplasty implant and graft
CPT/HCPCS: 71046; 80053; 83690; 84484; 85025; 93005; 93010; 99285-25; A9270

== ENCOUNTER → 2025-04-20 | Outpatient (CLI) | payer MEDICARE ==
[~2025-04-20] MED LIST changes: +COQ-10100 MG; +NITROGLYCERIN0.4 M3; +NURTEC ODT75 MG; +PANTOPRAZOLE SO40 M2; +QULIPTA60 MG; +TAMSULOSIN HCL0.4 M1; +TRAZ50; +VITAMIN D (ERGOCALCI; +XARELTO20 M1; +[UNRECOGNIZED DRUG - CODE]; +[UNRECOGNIZED DRUG - OTHER]
== END ==
LOC: LAB 19:28 → LAB SHORT 19:28
DX: N39.0 Urinary tract infection, site not specified (principal)
CPT/HCPCS: 87077; 87086; 87186

== ENCOUNTER → 2025-05-11 | Outpatient (CLI) | payer MEDICARE | LOC: LAB 18:27 → LAB SHORT 18:27 | DX: N39.0 Urinary tract infection, site not specified (principal) | CPT/HCPCS: 87086 ==